=== PATIENT | male | born 1950 | race Asian ===

== ENCOUNTER 2020-07-18 20:50 | Emergency (ER) | payer OTHER, BC, SELFPAY ==
[~2020-07-18] VITALS: Ht 167.6 cm; Wt 78.0 kg
[2020-07-18 20:55] VITALS: Ht 167.6 cm; Wt 78.0 kg
[2020-07-18 23:55] LABS: BASOPHIL % 0.2 % (0.2-1.5); PLATELET COUNT 288 x10^3mcL (152-348)
[2020-07-19 00:07] LABS: CALCIUM 8.3 mg/dL (8.5-10.1); CARBON DIOXIDE 26.3 mmol/L (21-32); CREATININE SERUM 1.9 mg/dL (0.7-1.3); POTASSIUM SERUM 4.4 mmol/L (3.5-5.1)
[2020-07-19 00:12] LABS: ALBUMIN 3.8 g/dL (3.4-5.0); BILIRUBIN TOTAL 0.5 mg/dL (0.20-1.00); TOTAL PROTEIN, SERUM 7.3 g/dL (6.4-8.2)
[2020-07-19 04:56] VITALS: BP 104/64
== END 2020-07-19 04:56 | disposition left against medical advice (07) ==
LOC: ED 20:50
PROVIDERS: Emergency Medicine
DX: U07.1 COVID-19 (principal); J12.89 Other viral pneumonia; J96.91 Respiratory failure, unspecified with hypoxia; I10 Essential (primary) hypertension; E11.9 Type 2 diabetes mellitus without complications; E78.00 Pure hypercholesterolemia, unspecified
CPT/HCPCS: 83880; Q9967